=== PATIENT | male | born 1950 | race Two or more races ===

== ENCOUNTER 2020-07-27 13:03 | Emergency (ER) | payer SELFPAY ==
[~2020-07-27] VITALS: Ht 177.8 cm; Wt 90.7 kg
[2020-07-27 13:06] VITALS: BP 0/0
== END 2020-07-27 13:08 | disposition expired ==
LOC: ER 13:03 → EDBD 13:03 → ER 13:08
DX: I46.9 Cardiac arrest, cause unspecified (principal)
CPT/HCPCS: 92950